=== PATIENT | female | born 1965 | race Caucasian/White ===

== ENCOUNTER 2025-05-09 10:42 | Inpatient (IN) | payer BC ==
[~2025-05-09] VITALS: Ht 172.7 cm; Wt 83.9 kg
[2025-05-09] MEDS ORDERED: LORAZEPAM INJ 2 MG/ML VIAL ONE (11:20)
[2025-05-09 11:22] LABS: PLATELET COUNT (AUTO) 288 K/uL (150-450); RED BLOOD CELL COUNT(AUTO) 5.91 MIL/uL (4.0-5.2); RED CELL DISTRIBUTION WIDTH 13.8 % (11.5-15.0); WHITE BLOOD COUNT (AUTO) 7.3 K/uL (4.3-11.0)
[2025-05-09] MEDS: LORAZEPAM INJ 2 MG/ML VIAL IV ONE (11:23)
[2025-05-09 11:26] LABS: CALCIUM, SERUM 9.8 mg/dL (8.5-10.1); CREATININE 1.0 mg/dL (0.6-1.3); SODIUM SERUM 136.0 mmol/L (136-145); UREA NITROGEN, BLOOD 17.0 mg/dL (7-18)
[2025-05-09 11:39] LABS: NT-PRO BNP 16.0 pg/mL (0-125)
[2025-05-09] MEDS ORDERED: IOHEXOL-350 100 ML VIAL IV ONE (11:50)
[2025-05-09] MEDS ORDERED: IV NS 0.9% 250 ML IV ONE (11:51)
[2025-05-09] MEDS ORDERED: APIX5TAB PO (13:13)
[2025-05-09] MEDS ORDERED: LEVO50TA8 PO (13:13)
[2025-05-09] MEDS ORDERED: ASPIRIN 325 MG TABLET ONE (13:40)
[2025-05-09] MEDS: ASPIRIN 325 MG TABLET PO ONE (13:44)
[2025-05-09] MEDS ORDERED: ONDANSETRON HCL/PF 4 MG/2 ML VIAL IVP PRN (15:00)
[2025-05-09] MEDS ORDERED: Z GUARD REMEDY 4 OZ OINT TP PRN (15:00)
[2025-05-09] MEDS ORDERED: MAG HYDROX/AL HYDROX/SIMETH 30 ML UDC PO PRN (15:00)
[2025-05-09] MEDS ORDERED: LORAZEPAM 1 MG TABLET PO PRN (15:00)
[2025-05-09] MEDS ORDERED: ACETAMINOPHEN 325 MG TABLET PO PRN (15:00)
[2025-05-09] MEDS ORDERED: MAGNESIUM HYDROXIDE 30 ML UDC PO PRN (15:00)
[2025-05-09] MEDS: ENOXAPARIN SODIUM 80 MG/0.8 ML DISP.SYRIN SQ SCH (15:07)
[2025-05-09] MEDS: HYDROCODONE/APAP 5/325MG TABLET PO PRN (15:10)
[2025-05-09] MEDS ORDERED: APIXABAN 5 MG TABLET PO SCH (17:00)
[2025-05-09 20:00] VITALS: BP 125/77; TEMP 98.1; O2SAT 97
[2025-05-10] VITALS: BP 116/75; TEMP 97; O2SAT 97
[2025-05-10 04:00] VITALS: BP 135/68; TEMP 97.3; O2SAT 97
[2025-05-10 06:59] LABS: CALCIUM, SERUM 8.7 mg/dL (8.5-10.1); CREATININE 0.9 mg/dL (0.6-1.3); PHOSPHORUS 3.4 mg/dL (2.5-4.9); SODIUM SERUM 140 mmol/L (136-145); UREA NITROGEN, BLOOD 19 mg/dL (7-18)
[2025-05-10 07:03] LABS: PLATELET COUNT (AUTO) 271 K/uL (150-450); RED BLOOD CELL COUNT(AUTO) 5.30 MIL/uL (4.0-5.2); RED CELL DISTRIBUTION WIDTH 13.8 % (11.5-15.0); WHITE BLOOD COUNT (AUTO) 5.6 K/uL (4.3-11.0)
[2025-05-10] MEDS: PANTOPRAZOLE 40 MG TABLET.DR PO SCH (07:30)
[2025-05-10 07:31] LABS: LDL 131 mg/dL (0-99)
[2025-05-10] MEDS: LEVOTHYROXINE SODIUM 50 MCG TABLET PO SCH (08:21)
[2025-05-11 06:07] LABS: HOMOCYSTEINE, PLASMA 14.6 umol/L (0.0-17.2)
[2025-05-12 15:07] LABS: *CARD ANTI-CARDIOLIPIN AB IgG <9 GPL U/mL (0-14); *CARD ANTI-CARDIOLIPIN AB IgM <9 MPL U/mL (0-12)
[2025-05-13 19:06] LABS: *ANTITHROMBIN III AG 96 % (72-124); *THROMBIN TIME 23.4 sec (0.0-23.0); *dRVVT 46.1 sec (0.0-47.0); ANTITHROMBIN III ACTIVITY 117 % (75-135); PROTEIN C ACTIVITY 131 % (73-180)
== END 2025-05-10 08:41 | disposition home or self-care (01) | DRG 206 ==
LOC: ER 10:54 → TELE1 14:29
PROVIDERS: ADMIT Nurse Practitioner Acute Care; ATTEND Nurse Practitioner Acute Care
DX: M94.0 Chondrocostal junction syndrome [Tietze] (principal); E03.9 Hypothyroidism, unspecified; Z86.711 Personal history of pulmonary embolism; Z79.01 Long term (current) use of anticoagulants; Z88.0 Allergy status to penicillin; Z79.890 Hormone replacement therapy; D75.1 Secondary polycythemia; Z80.42 Family history of malignant neoplasm of prostate; Z87.442 Personal history of urinary calculi; Z83.2 Family history of diseases of the blood and blood-forming organs and certain disorders involving the immune mechanism
CPT/HCPCS: 36415; 71045-TC; 80048-TC; 80061-TC; 81240; 81241; 82607-TC; 83090; 83735-TC; 83880; 84100-TC; 84443-TC; 84484-TC; 85025-TC; 85300; 85301; 85303; 85378-TC; 85613; 85670; 85705; 85732; 86147; 93307-TC; 93970-TC; G0378; J1650; J2060; J7050; Q9967